=== PATIENT | female | born 1965 | race African-American/Black ===

== ENCOUNTER 2018-06-19 13:33 | Emergency (ER) | payer OTHER ==
[~2018-06-19] VITALS: Ht 165.1 cm; Wt 91.2 kg
--- NOTE | 2018-06-19 13:45 | NUR ---
[facility] X1 HOUR, RADIATES TO RIGHT ARM. 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 "MAY HAVE BEEN EXPOSED TO AIDS". STATES PAIN LEVEL OF 7/10, HAS EXPERIENCED BEFORE BUT "NOT THIS BAD". PT IS AOX4, HYPOTENSIVE, O2 89% ON ROOM AIR. PLACED ON 2L NC. SHE IS AMB AND RR EVEN AND UNLABORED. DENIES SOB, DIZZINESS, WEAKNESS. READY FOR EVAL.
[2018-06-19] MEDS ORDERED: ACETAMINOPHEN ES 500 MG TABLET ONE (14:16)
[2018-06-19] MEDS ORDERED: ACETAMINOPHEN ES 500 MG TABLET PO ONE (14:30)
[2018-06-19] MEDS ORDERED: IV NS 0.9% 1,000 ML BAG IV ONE (14:30)
[2018-06-19 14:41] LABS: BASOPHILS % (AUTO) 0.4 % (0.0-2.0); EOSINOPHILS % (AUTO) 1.2 % (0.0-6.0); HEMATOCRIT 43 % (33-45); HEMOGLOBIN 14.3 g/dL (11.5-14.8); LYMPHOCYTES # (AUTO) 1.7 /CMM (0.8-4.8); LYMPHOCYTES % (AUTO) 31.9 % (20.0-44.0); MEAN CORPUSCULAR HGB CONC 33 g/dl (31.0-36.0); MEAN CORPUSCULAR VOLUME 99 fL (82-100); MONOCYTES # (AUTO) 0.6 /CMM (0.1-1.30); MONOCYTES % (AUTO) 11.9 % (2.0-12.0); NEUTROPHILS # (AUTO) 2.8 /CMM (1.8-8.9); NEUTROPHILS % (AUTO) 54.6 % (43.0-81.0); PLATELET COUNT (AUTO) 182 /CMM (150-450); RED BLOOD CELL COUNT(AUTO) 4.35 MIL/uL (4.0-5.2); WHITE BLOOD COUNT (AUTO) 5.2 K/uL (4.3-11.0)
[2018-06-19 14:56] LABS: CALCIUM, SERUM 8.4 mg/dL (8.5-10.1); CARBON DIOXIDE 25 mmol/L (21-32); CHLORIDE 107 mmol/L (98-107); CREATININE 0.7 mg/dL (0.6-1.3); GLUCOSE 99 mg/dL (74-106); POTASSIUM 3.9 mmol/L (3.5-5.1); SODIUM SERUM 139 mmol/L (136-145); UREA NITROGEN, BLOOD 20 mg/dL (7-18)
[2018-06-19 15:01] LABS: ALANINE AMINOTRANSFERASE 504 U/L (12-78); ALKALINE PHOSPHATASE 82 U/L (46-116); ASPARTATE AMINOTRANSFERASE 365 U/L (15-37); BILIRUBIN,DIRECT 0.1 mg/dL (0.0-0.2); BILIRUBIN,TOTAL 0.4 mg/dL (0.2-1.0); TOTAL PROTEIN, SERUM 7.8 g/dL (6.4-8.2)
--- NOTE | 2018-06-19 15:36 | NUR ---
IVF STILL INFUSING, ENCOURAGED PT TO KEEP ARM STRAIGHT TO ALLOW INFUSION. PT VERBALIZES UNDERSTANDING
--- NOTE | 2018-06-19 15:58 | NUR ---
PT PROVIDED MEAL TRAY
--- NOTE | 2018-06-19 18:11 | NUR ---
Patient is resting comfortably in bed with eyes closed. Easily aroused. VSS
--- NOTE | 2018-06-19 19:17 | NUR ---
Patient is resting comfortably in bed with eyes closed. Easily aroused. VSS. NO COMPLAINTS AT THIS TIME
--- NOTE | 2018-06-19 21:08 | NUR ---
PT ACCEPTED TO [facility] BY DR RUGGIERO. # FOR REPORT [phone]
--- NOTE | 2018-06-19 21:14 | NUR ---
[facility] CALLED FOR THIS PATIENT GOING TO [facility] ETA [id number] TRIP#[id number]
--- NOTE | 2018-06-19 21:27 | NUR ---
PT SLEEPING COMFORTABLY, EASILY AROUSED. NO COMPLAINTS AT THIS TIME. VSS.
--- NOTE | 2018-06-19 22:50 | NUR ---
REPORT GIVEN TO ADDY SOTO AT [facility] FOR TRANSFER OF CARE
--- NOTE | 2018-06-19 23:15 | NUR ---
REPORT GIVEN TO LEILANI LENNON AND BRYANNA.
--- NOTE | 2018-06-19 23:20 | NUR ---
IV removed. Catheter intact and site benign. Pressure and 4x4 applied to site. No bleeding noted. Patient discharged to [facility] in stable condition. Written and verbal after care instructions given. Patient verbalizes understanding of instruction.
[2018-06-19 23:29] VITALS: BP 143/79
== END 2018-06-19 23:30 ==
LOC: ER 13:35
DX: R07.89 Other chest pain (principal); F14.90 Cocaine use, unspecified, uncomplicated; R74.0 Nonspecific elevation of levels of transaminase and lactic acid dehydrogenase [LDH]; Z90.49 Acquired absence of other specified parts of digestive tract
CPT/HCPCS: 36415; 71045-TC; 80048-TC; 80076-TC; 84484-TC; 85025-TC; 85378-TC; 85730-TC; J7030

== ENCOUNTER 2019-10-26 20:39 | Emergency (ER) | payer OTHER ==
[~2019-10-26] VITALS: Ht 165.1 cm; Wt 81.6 kg
--- NOTE | 2019-10-26 20:41 | NUR ---
[id number] chest pain x 1hr, non radiating. pending transfer from [facility] to [facility] vn, then c/o cp upon arrival to facility,+si wants hang herself, pt to bed 15, pt awake ,aler,t -sob, nad noted, placed on monitor,. pending md hernandez
[2019-10-26] MEDS ORDERED: ASPIRIN 81 MG TAB.CHEW ONE (20:57)
[2019-10-26] MEDS ORDERED: ASPIRIN 81 MG TAB.CHEW PO ONE (21:00)
[2019-10-26 21:07] LABS: BASOPHILS % (AUTO) 0.4 % (0.0-2.0); EOSINOPHILS % (AUTO) 1.5 % (0.0-6.0); HEMATOCRIT 46 % (33-45); HEMOGLOBIN 15.2 g/dL (11.5-14.8); LYMPHOCYTES # (AUTO) 2.2 /CMM (0.8-4.8); LYMPHOCYTES % (AUTO) 48.5 % (20.0-44.0); MEAN CORPUSCULAR HGB CONC 33 g/dl (31.0-36.0); MEAN CORPUSCULAR VOLUME 95 fL (82-100); MONOCYTES # (AUTO) 0.5 /CMM (0.1-1.30); NEUTROPHILS # (AUTO) 1.8 /CMM (1.8-8.9); NEUTROPHILS % (AUTO) 38.6 % (43.0-81.0); PLATELET COUNT (AUTO) 171 /CMM (150-450); RED BLOOD CELL COUNT(AUTO) 4.83 MIL/uL (4.0-5.2); WHITE BLOOD COUNT (AUTO) 4.6 K/uL (4.3-11.0)
[2019-10-26 21:24] LABS: CALCIUM, SERUM 8.5 mg/dL (8.5-10.1); CARBON DIOXIDE 28 mmol/L (21-32); CHLORIDE 102 mmol/L (98-107); GLUCOSE 139 mg/dL (74-106); POTASSIUM 3.6 mmol/L (3.5-5.1); SODIUM SERUM 138 mmol/L (136-145); UREA NITROGEN, BLOOD 4 mg/dL (7-18)
--- NOTE | 2019-10-26 21:55 | NUR ---
PT MEDICALLY CLEARED FOR DISCHARGE PER ER MD BRICE. CLINICAL INFORMATION FAXED TO [facility] INTAKE.
--- NOTE | 2019-10-26 22:20 | NUR ---
PT MEDICALLY CLEARED FOR DISCHARGE BACK TO [facility] JANIE FLORES MD.
--- NOTE | 2019-10-26 23:02 | NUR ---
PER RUPALI FROM [facility] INTAKE PT OK TO GO BACK TO [facility]. ACCEPTING MD RUGGIERO/ÓSCAR PHONE # FOR REPORT [phone]
--- NOTE | 2019-10-26 23:33 | NUR ---
ETA 1-3HRS #[id number] PER [facility]
--- NOTE | 2019-10-27 00:09 | NUR ---
REPORT CALLED TO VEE[facility]STRO. AWAITING TRANSPORT.
--- NOTE | 2019-10-27 00:09 | NUR ---
spoke with Carolyn from [facility]. ambulance ETA 30-45min
[2019-10-27 00:46] VITALS: BP 116/69
== END 2019-10-27 00:47 ==
LOC: ER 20:39
DX: R07.89 Other chest pain (principal); F32.9 Major depressive disorder, single episode, unspecified; F17.200 Nicotine dependence, unspecified, uncomplicated; Z90.49 Acquired absence of other specified parts of digestive tract
CPT/HCPCS: 36415; 71045-TC; 80048-TC; 84484-TC; 85025-TC

== ENCOUNTER 2021-06-10 14:36 | Inpatient (IN) | payer OTHER ==
[~2021-06-10] VITALS: Ht 165.1 cm; Wt 102.1 kg
[2021-06-10] MEDS ORDERED: MORPHINE SULFATE INJ 2 MG/ML DISP.SYRIN IV ONE (16:00)
[2021-06-10] MEDS ORDERED: MORPHINE SULFATE INJ 2 MG/ML DISP.SYRIN ONE (16:01)
[2021-06-10 16:09] LABS: BASOPHILS # (AUTO) 0.1 K/uL (0.0-0.2); BASOPHILS % (AUTO) 0.7 % (0.0-2.0); EOSINOPHILS % (AUTO) 1.5 % (0.0-6.0); HEMATOCRIT 41 % (33-45); HEMOGLOBIN 13.5 g/dL (11.5-14.8); LYMPHOCYTES # (AUTO) 2.2 K/uL (0.8-4.8); LYMPHOCYTES % (AUTO) 31.6 % (20.0-44.0); MEAN CORPUSCULAR HGB CONC 33 g/dl (31.0-36.0); MEAN CORPUSCULAR VOLUME 98 fL (82-100); MONOCYTES # (AUTO) 0.4 K/uL (0.1-1.30); MONOCYTES % (AUTO) 6.2 % (2.0-12.0); NEUTROPHILS # (AUTO) 4.2 K/uL (1.8-8.9); PLATELET COUNT (AUTO) 249 K/uL (150-450); RED BLOOD CELL COUNT(AUTO) 4.18 MIL/uL (4.0-5.2)
[2021-06-10 16:25] LABS: CALCIUM, SERUM 10.2 mg/dL (8.5-10.1); CARBON DIOXIDE 30 mmol/L (21-32); CHLORIDE 102 mmol/L (98-107); CREATININE 0.8 mg/dL (0.6-1.3); GLUCOSE 71 mg/dL (74-106); POTASSIUM 3.7 mmol/L (3.5-5.1); SODIUM SERUM 140 mmol/L (136-145); UREA NITROGEN, BLOOD 15 mg/dL (7-18)
[2021-06-10 16:34] LABS: ALANINE AMINOTRANSFERASE 238 U/L (12-78); ALKALINE PHOSPHATASE 106 U/L (46-116); ASPARTATE AMINOTRANSFERASE 212 U/L (15-37); BILIRUBIN,DIRECT 0.1 mg/dL (0.0-0.2); BILIRUBIN,TOTAL 0.3 mg/dL (0.2-1.0); TOTAL PROTEIN, SERUM 7.8 g/dL (6.4-8.2)
[2021-06-10] MEDS ORDERED: ESCI5TAB PO (18:20)
[2021-06-10] MEDS ORDERED: TRAM50TA2 PO (18:20)
[2021-06-10] MEDS ORDERED: QUET50TA PO (18:20)
[2021-06-10] MEDS ORDERED: QUET200T PO (18:20)
[2021-06-10] MEDS ORDERED: TEMA15CA PO (18:20)
[2021-06-10] MEDS ORDERED: LORA-259 PO (18:20)
[2021-06-10] MEDS ORDERED: ACET-868 PO (18:20)
[2021-06-10] MEDS ORDERED: MAGNESIUM HYDROXIDE 30 ML UDC PO PRN (22:00)
[2021-06-10] MEDS ORDERED: MAG HYDROX/AL HYDROX/SIMETH 30 ML UDC PO PRN (22:00)
[2021-06-10] MEDS ORDERED: ACETAMINOPHEN 325 MG TABLET PO PRN (22:00)
[2021-06-10] MEDS ORDERED: ONDANSETRON HCL/PF 4 MG/2 ML VIAL IVP PRN (22:00)
[2021-06-10] MEDS ORDERED: ASPIRIN 325 MG TABLET PO ONE (22:00)
[2021-06-10] MEDS ORDERED: MORPHINE SULFATE INJ 2 MG/ML DISP.SYRIN IV PRN (23:30)
[2021-06-10] MEDS ORDERED: ASPIRIN 325 MG TABLET ONE (23:57)
[2021-06-10] MEDS ORDERED: ENOXAPARIN SODIUM 40 MG/0.4 ML DISP.SYRIN SQ ONE (23:57)
[2021-06-10] MEDS ORDERED: ATORVASTATIN 10 MG TABLET ONE (23:57)
[2021-06-11] MEDS: ATORVASTATIN 10 MG TABLET PO SCH ×2 (00:03→22:51)
[2021-06-11] MEDS: ENOXAPARIN SODIUM 40 MG/0.4 ML DISP.SYRIN SQ SCH ×2 (00:03→22:54)
[2021-06-11 05:12] LABS: BASOPHILS % (AUTO) 0.3 % (0.0-2.0); EOSINOPHILS % (AUTO) 2.8 % (0.0-6.0); HEMATOCRIT 39 % (33-45); HEMOGLOBIN 13.4 g/dL (11.5-14.8); LYMPHOCYTES # (AUTO) 1.6 K/uL (0.8-4.8); LYMPHOCYTES % (AUTO) 28.4 % (20.0-44.0); MEAN CORPUSCULAR HGB CONC 34 g/dl (31.0-36.0); MEAN CORPUSCULAR VOLUME 98 fL (82-100); MONOCYTES # (AUTO) 0.7 K/uL (0.1-1.30); MONOCYTES % (AUTO) 11.8 % (2.0-12.0); NEUTROPHILS # (AUTO) 3.2 K/uL (1.8-8.9); NEUTROPHILS % (AUTO) 56.7 % (43.0-81.0); PLATELET COUNT (AUTO) 241 K/uL (150-450); RED BLOOD CELL COUNT(AUTO) 4.03 MIL/uL (4.0-5.2); WHITE BLOOD COUNT (AUTO) 5.7 K/uL (4.3-11.0)
[2021-06-11 05:52] LABS: CALCIUM, SERUM 8.3 mg/dL (8.5-10.1); CREATININE 0.7 mg/dL (0.6-1.3); MAGNESIUM 1.6 mg/dL (1.8-2.4); PHOSPHORUS 4.8 mg/dL (2.5-4.9); POTASSIUM 3.8 mmol/L (3.5-5.1)
[2021-06-11] MEDS ORDERED: MAGNESIUM OXIDE 400 MG TABLET PO ONE (10:00)
[2021-06-11] MEDS ORDERED: ASPIRIN EC 81 MG TABLET.DR PO ONE (10:50)
[2021-06-11] MEDS: ASPIRIN 81 MG TAB.CHEW PO SCH (10:51)
[2021-06-11] MEDS ORDERED: CT SWABBABLE VALVE TRANS SET 1 EA INFUS.SET MC ONE (12:36)
[2021-06-11] MEDS ORDERED: IOHEXOL-350 100 ML VIAL IV ONE (12:36)
[2021-06-11] MEDS ORDERED: METOPROLOL TARTRATE INJ 5 MG/5 ML AMPUL ONE (12:36)
[2021-06-11] MEDS ORDERED: IV NS 0.9% 250 ML IV ONE (12:36)
[2021-06-11] MEDS ORDERED: NITROGLYCERIN 0.4 MG/TAB BOTTLE ONE (12:37)
[2021-06-11] MEDS: METOPROLOL TARTRATE INJ 5 MG/5 ML AMPUL IVP PRN ×2 (13:17→13:22)
[2021-06-11] MEDS ORDERED: NITROGLYCERIN 0.4 MG/TAB BOTTLE SL ONE (13:30)
[2021-06-11] MEDS ORDERED: MORPHINE SULFATE INJ 2 MG/ML DISP.SYRIN ONE (15:14)
[2021-06-11] MEDS: MORPHINE SULFATE INJ 2 MG/ML DISP.SYRIN IV PRN ×2 (15:17→22:52)
[2021-06-12] VITALS: BP 138/80
[2021-06-12 04:00] VITALS: BP 141/76
[2021-06-12 06:53] LABS: CALCIUM, SERUM 8.5 mg/dL (8.5-10.1); CREATININE 0.6 mg/dL (0.6-1.3); POTASSIUM 3.7 mmol/L (3.5-5.1)
[2021-06-12 08:00] VITALS: BP 143/77
[2021-06-12] MEDS: ASPIRIN 81 MG TAB.CHEW PO SCH (09:28)
[2021-06-12] MEDS: MORPHINE SULFATE INJ 2 MG/ML DISP.SYRIN IV PRN ×3 (13:21→21:28)
[2021-06-12 16:00] VITALS: BP 122/79
[2021-06-12 20:00] VITALS: BP 132/77
[2021-06-12] MEDS: ENOXAPARIN SODIUM 40 MG/0.4 ML DISP.SYRIN SQ SCH (21:26)
[2021-06-12] MEDS: ATORVASTATIN 10 MG TABLET PO SCH (21:27)
[2021-06-13] VITALS: BP 106/68
[2021-06-13] MEDS: MORPHINE SULFATE INJ 2 MG/ML DISP.SYRIN IV PRN ×6 (02:55→22:04)
[2021-06-13 04:00] VITALS: BP 129/75
[2021-06-13 06:29] LABS: CALCIUM, SERUM 8.9 mg/dL (8.5-10.1); CREATININE 0.7 mg/dL (0.6-1.3); POTASSIUM 3.6 mmol/L (3.5-5.1)
[2021-06-13] MEDS: ASPIRIN 81 MG TAB.CHEW PO SCH (09:22)
[2021-06-13] MEDS: ENOXAPARIN SODIUM 40 MG/0.4 ML DISP.SYRIN SQ SCH (21:39)
[2021-06-13] MEDS: ATORVASTATIN 10 MG TABLET PO SCH (21:40)
[2021-06-13 22:00] VITALS: BP 125/75
[2021-06-14] VITALS: BP 132/81
[2021-06-14] MEDS: MORPHINE SULFATE INJ 2 MG/ML DISP.SYRIN IV PRN ×2 (03:07→09:19)
[2021-06-14] MEDS: ASPIRIN 81 MG TAB.CHEW PO SCH (09:18)
[2021-06-14] MEDS ORDERED: ATOR10TA PO (15:42)
== END 2021-06-14 16:40 | DRG 198 ==
LOC: ER 14:44 → TRANSITION 23:01 → TELE1 06-11 19:57 → TELE2 06-12 10:44
PROVIDERS: ADMIT Nurse Practitioner Acute Care
DX: I20.0 Unstable angina (principal); D68.69 Other thrombophilia; E44.1 Mild protein-calorie malnutrition; E88.09 Other disorders of plasma-protein metabolism, not elsewhere classified; Z20.822 Contact with and (suspected) exposure to COVID-19; E83.52 Hypercalcemia; E66.01 Morbid (severe) obesity due to excess calories; F14.90 Cocaine use, unspecified, uncomplicated; J44.9 Chronic obstructive pulmonary disease, unspecified; R74.01 Elevation of levels of liver transaminase levels; F32.A Depression, unspecified; Z68.37 Body mass index [BMI] 37.0-37.9, adult
CPT/HCPCS: 36415; 71045-TC; 75574; 80048-TC; 80061-TC; 80076-TC; 83735-TC; 84100-TC; 84484-TC; 85025-TC; 85378-TC; 87081-TC; 93307-TC; C9803; G0378; J1650; J2270; J2405; J3490; J7030; J7050; Q9967; U0003

== ENCOUNTER 2022-12-08 13:17 | Emergency (ER) | payer MEDICAID, OTHER ==
[~2022-12-08] VITALS: Ht 165.1 cm; Wt 106.6 kg
[~2022-12-08 13:17] MED LIST: ACET-868 PO; ATOR10TA PO; ESCI5TAB PO; LORA-259 PO; QUET200T PO; QUET50TA PO; TEMA15CA PO; TRAM50TA2 PO
--- NOTE | 2022-12-08 13:25 | NUR ---
BIB RA 102 FROM [facility] VN,C/ CHEST PAIN,BLOOD SUGAR 384
[2022-12-08 14:17] LABS: BASOPHILS # (AUTO) 0.1 K/uL (0.0-0.2); BASOPHILS % (AUTO) 0.8 % (0.0-2.0); EOSINOPHILS % (AUTO) 0.4 % (0.0-6.0); HEMATOCRIT 39 % (33-45); HEMOGLOBIN 12.8 g/dL (11.5-14.8); LYMPHOCYTES # (AUTO) 3.5 K/uL (0.8-4.8); LYMPHOCYTES % (AUTO) 31.9 % (20.0-44.0); MEAN CORPUSCULAR HGB CONC 33 g/dl (31.0-36.0); MEAN CORPUSCULAR VOLUME 94 fL (82-100); MONOCYTES # (AUTO) 0.7 K/uL (0.1-1.30); MONOCYTES % (AUTO) 6.3 % (2.0-12.0); NEUTROPHILS # (AUTO) 6.7 K/uL (1.8-8.9); NEUTROPHILS % (AUTO) 60.6 % (43.0-81.0); PLATELET COUNT (AUTO) 224 K/uL (150-450); RED BLOOD CELL COUNT(AUTO) 4.11 MIL/uL (4.0-5.2)
[2022-12-08 14:29] LABS: CALCIUM, SERUM 8.6 mg/dL (8.5-10.1); CARBON DIOXIDE 28 mmol/L (21-32); CHLORIDE 103 mmol/L (98-107); CREATININE 0.8 mg/dL (0.6-1.3); POTASSIUM 4.3 mmol/L (3.5-5.1); SODIUM SERUM 138 mmol/L (136-145); UREA NITROGEN, BLOOD 9 mg/dL (7-18)
[2022-12-08 14:34] LABS: GLUCOSE 366 mg/dL (74-106)
--- NOTE | 2022-12-08 16:12 | NUR ---
FAXED PT CLINICALS TO [facility]
--- NOTE | 2022-12-08 16:15 | NUR ---
COVID SWAB SENT TO LAB
--- NOTE | 2022-12-08 16:37 | NUR ---
PT ACCEPTED TO [facility] GIVE REPORT TO JERRI JUAREZ FOR TRANSPORT [id number]
--- NOTE | 2022-12-08 17:37 | NUR ---
TRANSPORT AT BEDSIDE FOR TUNG
--- NOTE | 2022-12-08 17:38 | NUR ---
IV removed. Catheter intact and site benign. Pressure and 4x4 applied to site. No bleeding noted.
--- NOTE | 2022-12-08 17:38 | NUR ---
Patient discharged to home in stable condition. Written and verbal after care instructions given. Patient verbalizes understanding of instruction.
[2022-12-08 17:39] VITALS: BP 112/64; TEMP 98.1
== END 2022-12-08 17:40 | disposition home or self-care (01) ==
LOC: ER 13:25
DX: R07.89 Other chest pain (principal); Z90.49 Acquired absence of other specified parts of digestive tract; Z79.899 Other long term (current) drug therapy; Z20.822 Contact with and (suspected) exposure to COVID-19
CPT/HCPCS: 99285; 71045; 87426; 93005; 85025; 80048; 36415; 84484; 83880; C9803

== ENCOUNTER 2022-12-28 23:08 | Emergency (ER) | payer MEDICAID, OTHER ==
[~2022-12-28] VITALS: Ht 167.6 cm; Wt 111.1 kg
--- NOTE | 2022-12-28 23:25 | NUR ---
PT [id number] C/O MID CP NONRAD. 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 PT IS A/O X 4, RR EVEN AND UNLABORED NO SOB NOTED. PT TAKEN TO ER BED 09. PT VSS. NO ACUTE DISRTRESS NOTED. EKG AT BEDSIDE.
--- NOTE | 2022-12-28 23:41 | NUR ---
LW 20G IV STARTED NLOOD SENT TO LAB
[2022-12-29 00:06] LABS: BASOPHILS # (AUTO) 0.1 K/uL (0.0-0.2); BASOPHILS % (AUTO) 1.1 % (0.0-2.0); EOSINOPHILS % (AUTO) 1.5 % (0.0-6.0); HEMATOCRIT 43 % (33-45); LYMPHOCYTES % (AUTO) 33.4 % (20.0-44.0); MEAN CORPUSCULAR HGB CONC 33 g/dl (31.0-36.0); MEAN CORPUSCULAR VOLUME 94 fL (82-100); MONOCYTES # (AUTO) 0.7 K/uL (0.1-1.30); MONOCYTES % (AUTO) 8.4 % (2.0-12.0); NEUTROPHILS % (AUTO) 55.6 % (43.0-81.0); PLATELET COUNT (AUTO) 268 K/uL (150-450); WHITE BLOOD COUNT (AUTO) 8.9 K/uL (4.3-11.0)
[2022-12-29] MEDS ORDERED: ACETAMINOPHEN ES 500 MG TABLET ONE (00:19)
[2022-12-29] MEDS ORDERED: ACETAMINOPHEN 325 MG TABLET PO ONE (00:30)
--- NOTE | 2022-12-29 00:43 | NUR ---
PT STILL UNABLE TO PROVIDE URINE AT THIS TIME. URINE COLLECTION CUP AT BEDSIDE AND PATIENT ENCOURAGED TO PROVIDE SAMPLE SOON POSSIBLE
[2022-12-29 00:57] LABS: ALANINE AMINOTRANSFERASE 150 U/L (12-78); ALBUMIN 3.6 g/dL (3.4-5.0); ALCOHOL, BLOOD 8 mg/dL (0-10); ALKALINE PHOSPHATASE 81 U/L (46-116); ASPARTATE AMINOTRANSFERASE 119 U/L (15-37); BILIRUBIN,DIRECT 0.3 mg/dL (0.0-0.2); CALCIUM, SERUM 8.9 mg/dL (8.5-10.1); CARBON DIOXIDE 20 mmol/L (21-32); CHLORIDE 101 mmol/L (98-107); CREATININE 0.6 mg/dL (0.6-1.3); GLUCOSE 143 mg/dL (74-106); POTASSIUM 2.9 mmol/L (3.5-5.1); SODIUM SERUM 137 mmol/L (136-145); TOTAL PROTEIN, SERUM 8.4 g/dL (6.4-8.2); UREA NITROGEN, BLOOD 2 mg/dL (7-18)
--- NOTE | 2022-12-29 01:57 | NUR ---
PT PROVIDED STOOL IN URINE SAMPLE AND URINE SAMPLE UNABLE TO BE SENT DUE TO CONTAMINANT.
[2022-12-29] MEDS ORDERED: TYL2T PO (02:26)
[2022-12-29] MEDS ORDERED: POTASSIUM CHLORIDE 20 MEQ TAB.PRT.SR PO ONE ×2 (02:30→02:52)
--- NOTE | 2022-12-29 03:04 | NUR ---
Patient discharged to home in stable condition. Written and verbal after care instructions given. Patient verbalizes understanding of instruction.IV removed. Catheter intact and site benign. Pressure and 4x4 applied to site. No bleeding noted.
[2022-12-29 03:08] VITALS: BP 154/96; TEMP 98.2; O2SAT 97
== END 2022-12-29 03:08 | disposition home or self-care (01) ==
LOC: ER 23:09
DX: S39.83XA Other specified injuries of pelvis, initial encounter (principal); R07.89 Other chest pain; Z90.49 Acquired absence of other specified parts of digestive tract; Z79.899 Other long term (current) drug therapy; W19.XXXA Unspecified fall, initial encounter; Y93.89 Activity, other specified; Y92.89 Other specified places as the place of occurrence of the external cause; Y99.8 Other external cause status
CPT/HCPCS: 36415; 71045-TC; 72170-TC; 80048-TC; 80076-TC; 84484-TC; 85025-TC; G0480

== ENCOUNTER 2023-01-27 03:37 | Emergency (ER) | payer OTHER ==
[~2023-01-27] VITALS: Ht 165.1 cm; Wt 104.3 kg
[~2023-01-27 03:37] MED LIST changes: +TYL2T PO
[2023-01-27] MEDS ORDERED: KETOROLAC TROMETHAMINE INJ 30 MG/ML VIAL ONE (03:56)
[2023-01-27] MEDS: KETOROLAC TROMETHAMINE INJ 30 MG/ML VIAL IM ONE (03:59)
[2023-01-27] MEDS ORDERED: HYDROCODONE/APAP 10/325MG TABLET ONE (05:39)
[2023-01-27] MEDS: HYDROCODONE/APAP 10/325MG TABLET PO ONE (05:42)
[2023-01-27] MEDS ORDERED: MORPHINE SULFATE INJ 4 MG/ML DISP.SYRIN ONE ×3 (05:59→14:43)
[2023-01-27] MEDS: MORPHINE SULFATE INJ 2 MG/ML DISP.SYRIN IM ONE ×3 (06:03→14:51)
[2023-01-27 12:35] LABS: BASOPHILS % (AUTO) 0.4 % (0.0-2.0); EOSINOPHILS # (AUTO) 0.1 K/uL (0.0-0.7); HEMATOCRIT 41 % (33-45); HEMOGLOBIN 13.6 g/dL (11.5-14.8); LYMPHOCYTES # (AUTO) 2.1 K/uL (0.8-4.8); LYMPHOCYTES % (AUTO) 28.3 % (20.0-44.0); MEAN CORPUSCULAR HEMOGLOBIN 31 PG (26.0-33.0); MEAN CORPUSCULAR HGB CONC 33 g/dl (31.0-36.0); MEAN CORPUSCULAR VOLUME 94 fL (82-100); MONOCYTES # (AUTO) 0.6 K/uL (0.1-1.30); MONOCYTES % (AUTO) 7.9 % (2.0-12.0); NEUTROPHILS # (AUTO) 4.7 K/uL (1.8-8.9); NEUTROPHILS % (AUTO) 62.4 % (43.0-81.0); PLATELET COUNT (AUTO) 248 K/uL (150-450); RED BLOOD CELL COUNT(AUTO) 4.36 MIL/uL (4.0-5.2); RED CELL DISTRIBUTION WIDTH 13.4 % (11.5-15.0); WHITE BLOOD COUNT (AUTO) 7.6 K/uL (4.3-11.0)
[2023-01-27 13:16] LABS: ALANINE AMINOTRANSFERASE 170 U/L (12-78); ALBUMIN 2.9 g/dL (3.4-5.0); ALKALINE PHOSPHATASE 87 U/L (46-116); ASPARTATE AMINOTRANSFERASE 108 U/L (15-37); BILIRUBIN,DIRECT 0.2 mg/dL (0.0-0.2); BILIRUBIN,TOTAL 0.5 mg/dL (0.2-1.0); CALCIUM, SERUM 8.6 mg/dL (8.5-10.1); CARBON DIOXIDE 21 mmol/L (21-32); CHLORIDE 101 mmol/L (98-107); CREATININE 0.5 mg/dL (0.6-1.3); GLUCOSE 117 mg/dL (74-106); POTASSIUM 3.1 mmol/L (3.5-5.1); SODIUM SERUM 133 mmol/L (136-145); TOTAL PROTEIN, SERUM 7.3 g/dL (6.4-8.2); UREA NITROGEN, BLOOD 6 mg/dL (7-18)
[2023-01-27 13:17] LABS: ACETAMINOPHEN 0 ug/ml (10-30); ALCOHOL, BLOOD < 3 mg/dL (0-10); SALICYLATE 2.4 mg/dL (2.8-20.0)
[2023-01-27] MEDS ORDERED: POTASSIUM CHLORIDE 20 MEQ TAB.PRT.SR PO ONE (14:43)
[2023-01-27] MEDS: POTASSIUM CHLORIDE 20 MEQ TAB.PRT.SR PO ONE (14:50)
[2023-01-27 16:15] LABS: APPEARANCE,URINE SLIGHTLY CLOUDY (CLEAR); BILIRUBIN,URINE NEGATIVE (NEGATIVE); BLOOD, URINE TRACE-INTA Ery/uL (NEGATIVE); COLOR,URINE ORANGE (YELLOW); KETONES,URINE TRACE mg/dL (NEGATIVE); LEUKOCYTE ESTERASE ,URINE 2+ (NEGATIVE); NITRITE, URINE POSITIVE (NEGATIVE); PROTEIN,URINE TRACE mg/dl (NEGATIVE); UGLUCOSE NEGATIVE (NEGATIVE)
[2023-01-27 16:37] LABS: BARBITURATE, URINE NEGATIVE (NEGATIVE); BENZODIAZEPINE, URINE NEGATIVE (NEGATIVE); CANNABINOID, URINE NEGATIVE (NEGATIVE); COCCAINE, URINE NEGATIVE (NEGATIVE); PHENCYCLIDINE SCREEN,URINE NEGATIVE (NEGATIVE)
[2023-01-27 16:38] LABS: AMPHETAMINE, URINE POSITIVE (NEGATIVE); OPIATE, URINE POSITIVE (NEGATIVE)
[2023-01-27 17:28] LABS: RBC,URINE 0-2 /HPF (0-2)
[2023-01-27 17:29] LABS: ADD URINE CULTURE YES; BACTERIA,URINE Many /HPF (None Seen); WBC,URINE 51-80 /HPF (0-3)
[2023-01-27 17:30] LABS: MUCUS,URINE Few /LPF (None Seen)
[2023-01-27] MEDS: NITROFURANTOIN/MONOHYDRATE MACROCRYSTALS 100 MG CAPSULE PO ONE (19:44)
[2023-01-27] MEDS ORDERED: oxyCODONE/APAP (5/325 MG) 1 UDTAB TABLET ONE (22:43)
[2023-01-27] MEDS: oxyCODONE/APAP (5/325 MG) 1 UDTAB TABLET PO ONE (22:44)
[2023-01-27 23:50] VITALS: BP 116/73; TEMP 98.7; O2SAT 96
== END 2023-01-27 23:45 | disposition short-term general hospital (02) ==
LOC: ER 03:38
DX: S22.42XA Multiple fractures of ribs, left side, initial encounter for closed fracture (principal); I25.10 Atherosclerotic heart disease of native coronary artery without angina pectoris; Z79.899 Other long term (current) drug therapy; Z90.49 Acquired absence of other specified parts of digestive tract; W50.0XXA Accidental hit or strike by another person, initial encounter; Y93.89 Activity, other specified; Y92.89 Other specified places as the place of occurrence of the external cause; Y99.8 Other external cause status
CPT/HCPCS: 99285; 96372 ×2; 71100; 71250; 85025; 80048; 87086; 80076; 81001; 36415; 80143; 80320; 80307; J2270 ×3; J1885; G0480

== ENCOUNTER 2023-01-28 00:17 | Emergency (ER) | payer OTHER ==
[~2023-01-28] VITALS: Ht 165.1 cm; Wt 104.3 kg
[2023-01-28] MEDS: IBUPROFEN 400 MG TABLET PO ONE (01:30)
[2023-01-28] MEDS ORDERED: IBUPROFEN 400 MG TABLET ONE (02:08)
[2023-01-28 02:24] LABS: BASOPHILS % (AUTO) 0.5 % (0.0-2.0); EOSINOPHILS # (AUTO) 0.1 K/uL (0.0-0.7); EOSINOPHILS % (AUTO) 0.9 % (0.0-6.0); HEMATOCRIT 44 % (33-45); HEMOGLOBIN 14.6 g/dL (11.5-14.8); LYMPHOCYTES # (AUTO) 1.7 K/uL (0.8-4.8); MEAN CORPUSCULAR HEMOGLOBIN 31 PG (26.0-33.0); MEAN CORPUSCULAR HGB CONC 33 g/dl (31.0-36.0); MEAN CORPUSCULAR VOLUME 95 fL (82-100); MONOCYTES # (AUTO) 0.5 K/uL (0.1-1.30); MONOCYTES % (AUTO) 6.7 % (2.0-12.0); NEUTROPHILS # (AUTO) 5.3 K/uL (1.8-8.9); NEUTROPHILS % (AUTO) 69.9 % (43.0-81.0); PLATELET COUNT (AUTO) 284 K/uL (150-450); RED BLOOD CELL COUNT(AUTO) 4.64 MIL/uL (4.0-5.2); RED CELL DISTRIBUTION WIDTH 13.9 % (11.5-15.0); WHITE BLOOD COUNT (AUTO) 7.6 K/uL (4.3-11.0)
[2023-01-28 02:31] LABS: CALCIUM, SERUM 8.7 mg/dL (8.5-10.1); CARBON DIOXIDE 22 mmol/L (21-32); CHLORIDE 103 mmol/L (98-107); CREATININE 0.6 mg/dL (0.6-1.3); GLUCOSE 135 mg/dL (74-106); POTASSIUM 3.8 mmol/L (3.5-5.1); SODIUM SERUM 137 mmol/L (136-145); UREA NITROGEN, BLOOD 4 mg/dL (7-18)
[2023-01-28 02:37] LABS: ALANINE AMINOTRANSFERASE 164 U/L (12-78); ALBUMIN 3.1 g/dL (3.4-5.0); ALKALINE PHOSPHATASE 98 U/L (46-116); ASPARTATE AMINOTRANSFERASE 96 U/L (15-37); BILIRUBIN,DIRECT 0.2 mg/dL (0.0-0.2); BILIRUBIN,TOTAL 0.6 mg/dL (0.2-1.0); TOTAL PROTEIN, SERUM 7.8 g/dL (6.4-8.2)
[2023-01-28 02:40] LABS: ALCOHOL, BLOOD < 3 mg/dL (0-10)
[2023-01-28] MEDS ORDERED: HYDROCODONE/APAP 5/325MG TABLET ONE (21:34)
[2023-01-28] MEDS: HYDROCODONE/APAP 5/325MG TABLET PO ONE (21:39)
[2023-01-28 22:40] LABS: APPEARANCE,URINE CLEAR (CLEAR); BILIRUBIN,URINE 1+ (NEGATIVE); BLOOD, URINE NEGATIVE Ery/uL (NEGATIVE); COLOR,URINE DARK YELLOW (YELLOW); KETONES,URINE TRACE mg/dL (NEGATIVE); LEUKOCYTE ESTERASE ,URINE 1+ (NEGATIVE); NITRITE, URINE NEGATIVE (NEGATIVE); PH,URINE 6.5 (5.0-8.0); PROTEIN,URINE NEGATIVE (NEGATIVE); UGLUCOSE NEGATIVE (NEGATIVE)
[2023-01-28 22:42] LABS: ADD URINE CULTURE YES; BACTERIA,URINE Rare /HPF (None Seen); RBC,URINE 0-2 /HPF (0-2); SQUAMOUS EPITHELIAL CELL,UR Few /HPF (None Seen)
[2023-01-29] MEDS ORDERED: HYDROCODONE/APAP 10/325MG TABLET ONE (07:38)
[2023-01-29] MEDS: HYDROCODONE/APAP 10/325MG TABLET PO ONE (07:40)
[2023-01-29] MEDS ORDERED: HYDROCODONE/APAP 5/325MG TABLET ONE (18:33)
[2023-01-29] MEDS: HYDROCODONE/APAP 5/325MG TABLET PO ONE (18:35)
[2023-01-30] MEDS ORDERED: IBUPROFEN 600 MG TABLET ONE (03:03)
[2023-01-30] MEDS: IBUPROFEN 600 MG TABLET PO ONE (03:05)
[2023-01-30 12:11] VITALS: BP 124/80; TEMP 98; O2SAT 98
== END 2023-01-30 12:23 ==
LOC: ER 00:18
DX: S22.49XA Multiple fractures of ribs, unspecified side, initial encounter for closed fracture (principal); I25.10 Atherosclerotic heart disease of native coronary artery without angina pectoris; J44.9 Chronic obstructive pulmonary disease, unspecified; Z79.899 Other long term (current) drug therapy; Z90.49 Acquired absence of other specified parts of digestive tract; Z20.822 Contact with and (suspected) exposure to COVID-19; Z59.00 Homelessness unspecified; X58.XXXA Exposure to other specified factors, initial encounter; Y93.89 Activity, other specified; Y92.89 Other specified places as the place of occurrence of the external cause; Y99.8 Other external cause status
CPT/HCPCS: 99285; 85025; 80048; 87086; 80076; 81001; 36415; 87426; 80320; C9803; G0480

== ENCOUNTER 2023-05-31 17:53 | Emergency (ER) | payer OTHER ==
[~2023-05-31] VITALS: Ht 165.1 cm; Wt 82.1 kg
[2023-05-31] MEDS ORDERED: ALBU18HF2 INH (19:08)
[2023-05-31 20:00] VITALS: BP 117/75; TEMP 98.4; O2SAT 98
== END 2023-05-31 23:21 ==
LOC: ER 17:58
DX: R05.9 Cough, unspecified (principal); I25.10 Atherosclerotic heart disease of native coronary artery without angina pectoris; J44.9 Chronic obstructive pulmonary disease, unspecified; Z90.49 Acquired absence of other specified parts of digestive tract; Z20.822 Contact with and (suspected) exposure to COVID-19; Z79.899 Other long term (current) drug therapy; Z59.00 Homelessness unspecified
CPT/HCPCS: 99284; 71045; 87426; C9803

== ENCOUNTER 2023-06-29 15:02 | Emergency (ER) | payer MEDICAID, OTHER ==
[~2023-06-29] VITALS: Ht 167.6 cm; Wt 99.8 kg
[~2023-06-29 15:02] MED LIST changes: +ALBU18HF2 INH
[2023-06-29 15:25] VITALS: BP 122/78; TEMP 98.4; O2SAT 96
[2023-06-29 17:11] LABS: BASOPHILS % (AUTO) 0.4 % (0.0-2.0); EOSINOPHILS # (AUTO) 0.2 K/uL (0.0-0.7); EOSINOPHILS % (AUTO) 2.2 % (0.0-6.0); HEMATOCRIT 43 % (33-45); HEMOGLOBIN 14.7 g/dL (11.5-14.8); LYMPHOCYTES # (AUTO) 3.6 K/uL (0.8-4.8); LYMPHOCYTES % (AUTO) 37.6 % (20.0-44.0); MEAN CORPUSCULAR HEMOGLOBIN 31 PG (26.0-33.0); MEAN CORPUSCULAR HGB CONC 34 g/dl (31.0-36.0); MEAN CORPUSCULAR VOLUME 93 fL (82-100); MONOCYTES # (AUTO) 0.5 K/uL (0.1-1.30); MONOCYTES % (AUTO) 5.5 % (2.0-12.0); NEUTROPHILS # (AUTO) 5.2 K/uL (1.8-8.9); NEUTROPHILS % (AUTO) 54.3 % (43.0-81.0); PLATELET COUNT (AUTO) 228 K/uL (150-450); RED BLOOD CELL COUNT(AUTO) 4.66 MIL/uL (4.0-5.2); RED CELL DISTRIBUTION WIDTH 13.9 % (11.5-15.0); WHITE BLOOD COUNT (AUTO) 9.6 K/uL (4.3-11.0)
[2023-06-29 17:27] LABS: ALANINE AMINOTRANSFERASE 177 U/L (12-78); ALBUMIN 2.9 g/dL (3.4-5.0); ALKALINE PHOSPHATASE 108 U/L (46-116); ASPARTATE AMINOTRANSFERASE 112 U/L (15-37); BILIRUBIN,DIRECT 0.1 mg/dL (0.0-0.2); BILIRUBIN,TOTAL 0.4 mg/dL (0.2-1.0); CALCIUM, SERUM 9.1 mg/dL (8.5-10.1); CARBON DIOXIDE 25 mmol/L (21-32); CHLORIDE 98 mmol/L (98-107); CREATININE 0.6 mg/dL (0.6-1.3); GLUCOSE 104 mg/dL (74-106); LIPASE 87 U/L (16-77); SODIUM SERUM 133 mmol/L (136-145); TOTAL PROTEIN, SERUM 8.4 g/dL (6.4-8.2); UREA NITROGEN, BLOOD 11 mg/dL (7-18)
[2023-06-29] MEDS ORDERED: MAG HYDROX/AL HYDROX/SIMETH 30 ML UDC PO ONE (18:30)
[2023-06-29] MEDS ORDERED: LIDOCAINE VISCOUS 2% UD 15 ML UDC MM ONE (18:30)
[2023-06-29] MEDS ORDERED: OMEP40CA21 PO (18:38)
[2023-06-29 19:54] LABS: ALCOHOL, BLOOD 3 mg/dL (0-10)
[2023-06-29] MEDS ORDERED: LIDOCAINE VISCOUS 2% UD 15 ML UDC ONE (20:32)
[2023-06-29] MEDS ORDERED: MAG HYDROX/AL HYDROX/SIMETH 30 ML UDC ONE (20:32)
[2023-06-29 20:38] LABS: ACETAMINOPHEN <10 ug/ml (10-30)
[2023-06-29 23:35] LABS: APPEARANCE,URINE SLIGHTLY CLOUDY (CLEAR); BILIRUBIN,URINE NEGATIVE (NEGATIVE); BLOOD, URINE TRACE-INTA Ery/uL (NEGATIVE); COLOR,URINE YELLOW (YELLOW); KETONES,URINE TRACE mg/dL (NEGATIVE); LEUKOCYTE ESTERASE ,URINE 2+ (NEGATIVE); NITRITE, URINE NEGATIVE (NEGATIVE); PROTEIN,URINE NEGATIVE (NEGATIVE); UGLUCOSE NEGATIVE (NEGATIVE)
[2023-06-29 23:56] LABS: BARBITURATE, URINE NEGATIVE (NEGATIVE); BENZODIAZEPINE, URINE NEGATIVE (NEGATIVE); CANNABINOID, URINE NEGATIVE (NEGATIVE); COCCAINE, URINE NEGATIVE (NEGATIVE); OPIATE, URINE NEGATIVE (NEGATIVE); PHENCYCLIDINE SCREEN,URINE NEGATIVE (NEGATIVE)
[2023-06-29 23:59] LABS: AMPHETAMINE, URINE POSITIVE (NEGATIVE)
[2023-06-30] LABS: ADD URINE CULTURE YES; BACTERIA,URINE 1+ /HPF (None Seen); WBC,URINE 51-80 /HPF (0-3)
== END 2023-06-30 08:41 ==
LOC: ER 15:17
DX: R10.13 Epigastric pain (principal); I25.10 Atherosclerotic heart disease of native coronary artery without angina pectoris; J44.9 Chronic obstructive pulmonary disease, unspecified; E11.9 Type 2 diabetes mellitus without complications; Z20.822 Contact with and (suspected) exposure to COVID-19; Z79.899 Other long term (current) drug therapy; Z59.00 Homelessness unspecified
CPT/HCPCS: 36415; 71045-TC; 80048-TC; 80076-TC; 81001; 83690-TC; 84484-TC; 85025-TC; 87086-TC; G0480

== ENCOUNTER 2023-07-19 10:58 | Emergency (ER) | payer MEDICAID, OTHER ==
[~2023-07-19] VITALS: Ht 165.1 cm; Wt 111.6 kg
[~2023-07-19 10:58] MED LIST changes: +OMEP40CA21 PO
[2023-07-19 11:55] VITALS: BP 121/78; TEMP 98.4; O2SAT 99
[2023-07-19 12:08] LABS: BASOPHILS % (AUTO) 0.5 % (0.0-2.0); EOSINOPHILS % (AUTO) 0.1 % (0.0-6.0); HEMATOCRIT 39 % (33-45); HEMOGLOBIN 13.1 g/dL (11.5-14.8); LYMPHOCYTES # (AUTO) 1.8 K/uL (0.8-4.8); LYMPHOCYTES % (AUTO) 28.3 % (20.0-44.0); MEAN CORPUSCULAR HEMOGLOBIN 31 PG (26.0-33.0); MEAN CORPUSCULAR HGB CONC 34 g/dl (31.0-36.0); MEAN CORPUSCULAR VOLUME 93 fL (82-100); MONOCYTES # (AUTO) 0.6 K/uL (0.1-1.30); NEUTROPHILS # (AUTO) 3.9 K/uL (1.8-8.9); NEUTROPHILS % (AUTO) 62.1 % (43.0-81.0); PLATELET COUNT (AUTO) 248 K/uL (150-450); RED BLOOD CELL COUNT(AUTO) 4.17 MIL/uL (4.0-5.2); RED CELL DISTRIBUTION WIDTH 13.9 % (11.5-15.0); WHITE BLOOD COUNT (AUTO) 6.3 K/uL (4.3-11.0)
[2023-07-19 12:17] LABS: CALCIUM, SERUM 8.4 mg/dL (8.5-10.1); CARBON DIOXIDE 23 mmol/L (21-32); CHLORIDE 96 mmol/L (98-107); CREATININE 0.7 mg/dL (0.6-1.3); GLUCOSE 130 mg/dL (74-106); POTASSIUM 3.9 mmol/L (3.5-5.1); SODIUM SERUM 132 mmol/L (136-145); UREA NITROGEN, BLOOD 5 mg/dL (7-18)
[2023-07-19 12:23] LABS: ALANINE AMINOTRANSFERASE 103 U/L (12-78); ALBUMIN 3.1 g/dL (3.4-5.0); ALCOHOL, BLOOD < 3 mg/dL (0-10); ALKALINE PHOSPHATASE 78 U/L (46-116); ASPARTATE AMINOTRANSFERASE 63 U/L (15-37); BILIRUBIN,DIRECT 0.3 mg/dL (0.0-0.2); BILIRUBIN,TOTAL 0.9 mg/dL (0.2-1.0); TOTAL PROTEIN, SERUM 7.6 g/dL (6.4-8.2)
[2023-07-19 12:25] LABS: ACETAMINOPHEN <10 ug/ml (10-30); SALICYLATE 2.6 mg/dL (2.8-20.0)
[2023-07-19 12:58] LABS: APPEARANCE,URINE SLIGHTLY CLOUDY (CLEAR); BILIRUBIN,URINE 1+ (NEGATIVE); BLOOD, URINE NEGATIVE Ery/uL (NEGATIVE); COLOR,URINE DARK YELLOW (YELLOW); KETONES,URINE NEGATIVE (NEGATIVE); LEUKOCYTE ESTERASE ,URINE 1+ (NEGATIVE); NITRITE, URINE NEGATIVE (NEGATIVE); PH,URINE 5.5 (5.0-8.0); PROTEIN,URINE NEGATIVE (NEGATIVE); UGLUCOSE NEGATIVE (NEGATIVE)
[2023-07-19 12:59] LABS: ADD URINE CULTURE YES; BACTERIA,URINE Few /HPF (None Seen); RBC,URINE 0-2 /HPF (0-2); SQUAMOUS EPITHELIAL CELL,UR Rare /HPF (None Seen)
[2023-07-19 13:06] LABS: BARBITURATE, URINE NEGATIVE (NEGATIVE); BENZODIAZEPINE, URINE NEGATIVE (NEGATIVE); COCCAINE, URINE NEGATIVE (NEGATIVE); OPIATE, URINE NEGATIVE (NEGATIVE); PHENCYCLIDINE SCREEN,URINE NEGATIVE (NEGATIVE)
[2023-07-19 13:11] LABS: AMPHETAMINE, URINE POSITIVE (NEGATIVE); CANNABINOID, URINE POSITIVE (NEGATIVE)
[2023-07-19] MEDS: CEPHALEXIN MONOHYDRATE 500 MG CAPSULE PO ONE (14:00)
[2023-07-19] MEDS ORDERED: CEPHALEXIN MONOHYDRATE 500 MG CAPSULE PO ONE (15:13)
== END 2023-07-19 19:46 ==
LOC: ER 11:04
DX: R45.851 Suicidal ideations (principal); N39.0 Urinary tract infection, site not specified; F15.10 Other stimulant abuse, uncomplicated; J44.9 Chronic obstructive pulmonary disease, unspecified; E11.9 Type 2 diabetes mellitus without complications; Z90.49 Acquired absence of other specified parts of digestive tract; F17.200 Nicotine dependence, unspecified, uncomplicated; Z79.899 Other long term (current) drug therapy; Z20.822 Contact with and (suspected) exposure to COVID-19
CPT/HCPCS: 36415; 80048-TC; 80076-TC; 81001; 85025-TC; 87086-TC; G0480